=== PATIENT | female | born 1970 | race Caucasian/White ===

== ENCOUNTER 2022-09-28 11:15 | Outpatient (CLI) | payer BC | END 2022-09-28 11:16 | disposition home or self-care (01) | LOC: CSHRAD 11:15 | PROVIDERS: ATTEND Internal Medicine Rheumatology | DX: M05.79 Rheumatoid arthritis with rheumatoid factor of multiple sites without organ or systems involvement (principal); M54.50 Low back pain, unspecified | CPT/HCPCS: 72202 ==